=== PATIENT | female | born 1940 | race Caucasian/White ===

== ENCOUNTER 2021-07-25 17:01 | Inpatient (IN) ==
[2021-07-25] MEDS ORDERED: FUROSEMIDE 40 MG/4 ML VIAL IV STA (18:49)
[2021-07-25] MEDS ORDERED: FUROSEMIDE 40 MG/4 ML VIAL ONE (20:14)
[2021-07-25 20:38] LABS: Basophils % 0.2 % (0.0-0.8); Eosinophils # 0.1 10*3/uL (0.0-0.87); Eosinophils % 1.4 % (0.00-10.9); Hematocrit 21.9 VOL% (35.7-47.0); Hemoglobin 6.6 GM/DL (12.0-16.0); Immature Granulocytes % 0.8 %; Immature Granulocytes Absolute 0.04 #; Lymphocytes # 0.5 10*3/uL (1.4-4.0); Lymphocytes % 9.1 % (21.3-54.2); Mean Corpuscular HGB Conc 30.1 GM/DL (32-36); Mean Corpuscular Volume 102.8 FL (87-102); Mean Platelet Volume 11.2 FL (9.6-12.0); Monocytes % 5.5 % (1.7-12.7); NRBC # 0.16 10*3/uL; Platelet Count 138 T/CUMM (130-400); Red Blood Count 2.13 MC/CUMM (3.8-5.5); Red Cell Distribution Width 16.2 % (9.3-17.3); White Blood Count 5.1 T/CUMM (4-12)
[2021-07-25 20:56] LABS: Albumin 3.4 G/DL (3.4-5.0); Bilirubin,Total 1.1 MG/DL (0.20-1.00); Calcium 8.8 MG/DL (8.5-10.1); Osmolality,Calculated 297.7 MOS/KG (273-304); Total Protein 6.9 G/DL (6.4-8.2)
[2021-07-25 21:01] LABS: Bilirubin,Urine Negative (Negative); Blood, Urine Small mg/dL (Negative); Glucose,Urine (UA) Negative (Negative); Ketones,Urine Negative (Negative); Nitrite,Urine Negative (Negative); Protein,Urine Negative; RBC,Urine 6 /HPF (0-4); Squamous Epithelial Cell,Urine Occasional /HPF (0-10); Urine Appearance Clear (Clear); Urine Color Straw (Yellow); Urine Specific Gravity 1.005 (1.001-1.035); Urine Urobilinogen 0.2 EU/DL (0.2-1.0)
[2021-07-25 21:02] LABS: Bacteria,Urine Occasional /HPF (Few); Hyaline Casts,Urine 4 /LPF (0-3); Mucus,Urine Occasional /LPF (Occasional)
[2021-07-25 21:08] LABS: INR 1.3; PT Patient Result 13.8 SECS (10.5-12.0); Partial Thromboplastin Time 47.6 SECS (23.9-33.8)
[2021-07-25] MEDS ORDERED: cefTRIAXone 1,000 MG in SODIUM CHLORIDE 0.9% 100 ML IV STA (21:41)
[2021-07-25] MEDS ORDERED: cefTRIAXone 1,000 MG VIAL ONE (21:55)
[2021-07-25] MEDS ORDERED: SODIUM CHLORIDE 0.9% 100 ML IV ONE (21:56)
[2021-07-26] MEDS ORDERED: SODIUM CHLORIDE 0.9% 1,000 ML IV PRN ×2 (01:35→12:24)
[2021-07-26] MEDS ORDERED: ONDANSETRON 4 MG/2 ML VIAL IV PRN (04:06)
[2021-07-26] MEDS: carvediloL 6.25 MG TABLET PO SCH (06:31)
[2021-07-26] MEDS: PANTOPRAZOLE 40 MG TABLET PO SCH (08:52)
[2021-07-26] MEDS: ACETAMINOPHEN 325 MG TABLET PO PRN ×2 (08:52→22:16)
[2021-07-26] MEDS ORDERED: INFLUENZA VIRUS VACCINE 0.5 ML SYRINGE IM ONE (09:00)
[2021-07-26 11:16] LABS: Hematocrit 24.7 VOL% (35.7-47.0); Hemoglobin 7.4 GM/DL (12.0-16.0)
[2021-07-26] MEDS ORDERED: ACETAMINOPHEN 650 MG PO PRN (12:00)
[2021-07-26] MEDS: AMIODARONE 200 MG TABLET PO SCH (12:31)
[2021-07-26 12:37] LABS: Basophils % 0.2 % (0.0-0.8); Eosinophils # 0.1 10*3/uL (0.0-0.87); Hematocrit 26.7 VOL% (35.7-47.0); Hemoglobin 7.7 GM/DL (12.0-16.0); Immature Granulocytes % 0.7 %; Immature Granulocytes Absolute 0.04 #; Lymphocytes # 0.4 10*3/uL (1.4-4.0); Lymphocytes % 7.2 % (21.3-54.2); Mean Corpuscular HGB Conc 28.8 GM/DL (32-36); Mean Corpuscular Volume 97.4 FL (87-102); Mean Platelet Volume 10.6 FL (9.6-12.0); Monocytes % 5.8 % (1.7-12.7); NRBC # 0.21 10*3/uL; Neutrophils % 85.1 % (38.7-73.9); Platelet Count 143 T/CUMM (130-400); Red Blood Count 2.74 MC/CUMM (3.8-5.5); Red Cell Distribution Width 17.4 % (9.3-17.3); White Blood Count 5.7 T/CUMM (4-12)
[2021-07-26 12:56] LABS: Hypochromasia 1+
[2021-07-26 12:57] LABS: Acanthocytes Few; Microcytosis 1+; Ovalocytes Slight; Platelet Estimate Adequate
[2021-07-26 13:07] LABS: Albumin 3.3 G/DL (3.4-5.0); Bilirubin,Total 1.1 MG/DL (0.20-1.00); Calcium 9.2 MG/DL (8.5-10.1); Osmolality,Calculated 302.3 MOS/KG (273-304)
[2021-07-26] MEDS: cefTRIAXone 1,000 MG in SODIUM CHLORIDE 0.9% 100 ML IV SCH (14:02)
[2021-07-26] MEDS ORDERED: FUROSEMIDE 40 MG/4 ML VIAL IV ONE (14:21)
[2021-07-26] MEDS ORDERED: FUROSEMIDE 40 MG TABLET PO SCH (16:00)
[2021-07-26] MEDS ORDERED: APIXABAN 2.5 MG TABLET PO SCH (21:00)
[2021-07-27 00:40] LABS: Hematocrit 26.2 VOL% (35.7-47.0); Hemoglobin 7.9 GM/DL (12.0-16.0)
[2021-07-27] MEDS: carvediloL 6.25 MG TABLET PO SCH ×3 (02:30→21:12)
[2021-07-27] MEDS: ACETAMINOPHEN 325 MG TABLET PO PRN (05:04)
[2021-07-27 05:24] LABS: Basophils % 0.2 % (0.0-0.8); Eosinophils # 0.1 10*3/uL (0.0-0.87); Eosinophils % 1.2 % (0.00-10.9); Hematocrit 27.4 VOL% (35.7-47.0); Hemoglobin 8.5 GM/DL (12.0-16.0); Immature Granulocytes % 0.8 %; Immature Granulocytes Absolute 0.04 #; Lymphocytes # 0.5 10*3/uL (1.4-4.0); Lymphocytes % 9.4 % (21.3-54.2); Mean Corpuscular Volume 95.5 FL (87-102); Mean Platelet Volume 10.8 FL (9.6-12.0); Monocytes % 6.3 % (1.7-12.7); NRBC # 0.18 10*3/uL; Neutrophils % 82.1 % (38.7-73.9); Platelet Count 139 T/CUMM (130-400); Red Blood Count 2.87 MC/CUMM (3.8-5.5); Red Cell Distribution Width 18.2 % (9.3-17.3); White Blood Count 5.1 T/CUMM (4-12)
[2021-07-27 05:59] LABS: Bilirubin,Total 0.9 MG/DL (0.20-1.00); Calcium 9.2 MG/DL (8.5-10.1); Osmolality,Calculated 300.3 MOS/KG (273-304); Total Protein 6.7 G/DL (6.4-8.2)
[2021-07-27] MEDS: CALCIUM (CARBONATE)/VITAMIN D 600 MG-400 UNIT TABLET PO SCH (10:39)
[2021-07-27] MEDS: MULTIVITAMIN (BEROCCA) TABLET PO SCH (10:40)
[2021-07-27] MEDS: ASPIRIN EC 81 MG TABLET PO SCH (10:41)
[2021-07-27] MEDS: AMIODARONE 200 MG TABLET PO SCH (10:41)
[2021-07-27] MEDS: PANTOPRAZOLE 40 MG TABLET PO SCH (10:42)
[2021-07-27] MEDS: FUROSEMIDE 40 MG/4 ML VIAL IV SCH (10:43)
[2021-07-27] MEDS: cefTRIAXone 1,000 MG in SODIUM CHLORIDE 0.9% 100 ML IV SCH (13:04)
[2021-07-27] MEDS: SKIN HEALING OINT (AQUAPHOR) 50 GM TUBE TOP SCH ×2 (18:25→21:15)
[2021-07-27] MEDS: SIMVASTATIN 20 MG TABLET PO SCH (21:12)
[2021-07-28] MEDS: ACETAMINOPHEN 325 MG TABLET PO PRN (02:14)
[2021-07-28 07:17] LABS: Basophils % 0.2 % (0.0-0.8); Eosinophils # 0.1 10*3/uL (0.0-0.87); Eosinophils % 1.9 % (0.00-10.9); Hematocrit 26.6 VOL% (35.7-47.0); Hemoglobin 8.1 GM/DL (12.0-16.0); Immature Granulocytes % 0.6 %; Immature Granulocytes Absolute 0.03 #; Lymphocytes # 0.5 10*3/uL (1.4-4.0); Lymphocytes % 9.5 % (21.3-54.2); Mean Corpuscular HGB Conc 30.5 GM/DL (32-36); Mean Platelet Volume 10.8 FL (9.6-12.0); Monocytes % 5.4 % (1.7-12.7); Neutrophils % 82.4 % (38.7-73.9); Platelet Count 141 T/CUMM (130-400); Red Blood Count 2.83 MC/CUMM (3.8-5.5); Red Cell Distribution Width 17.6 % (9.3-17.3); White Blood Count 5.4 T/CUMM (4-12)
[2021-07-28 07:33] LABS: Calcium 9.2 MG/DL (8.5-10.1); Osmolality,Calculated 300.1 MOS/KG (273-304); Potassium 3.8 MMOL/L (3.5-5.1)
[2021-07-28] MEDS: DAPAGLIFLOZIN 10 MG TABLET PO SCH (09:31)
[2021-07-28] MEDS: CALCIUM (CARBONATE)/VITAMIN D 600 MG-400 UNIT TABLET PO SCH (09:32)
[2021-07-28] MEDS: PANTOPRAZOLE 40 MG TABLET PO SCH (09:32)
[2021-07-28] MEDS: AMIODARONE 200 MG TABLET PO SCH (09:32)
[2021-07-28] MEDS: MULTIVITAMIN (BEROCCA) TABLET PO SCH (09:32)
[2021-07-28] MEDS: ASPIRIN EC 81 MG TABLET PO SCH (09:32)
[2021-07-28] MEDS: FUROSEMIDE 40 MG/4 ML VIAL IV SCH (09:33)
[2021-07-28] MEDS: SKIN HEALING OINT (AQUAPHOR) 50 GM TUBE TOP SCH ×2 (09:35→21:05)
[2021-07-28] MEDS: carvediloL 6.25 MG TABLET PO SCH ×2 (10:08→21:03)
[2021-07-28] MEDS: ERTAPENEM 500 MG in SODIUM CHLORIDE 0.9% 100 ML IV SCH (11:46)
[2021-07-28] MEDS: SIMVASTATIN 20 MG TABLET PO SCH (21:03)
[2021-07-29 05:40] LABS: Basophils % 0.4 % (0.0-0.8); Eosinophils # 0.1 10*3/uL (0.0-0.87); Eosinophils % 2.8 % (0.00-10.9); Hematocrit 27.2 VOL% (35.7-47.0); Hemoglobin 8.3 GM/DL (12.0-16.0); Immature Granulocytes % 0.4 %; Immature Granulocytes Absolute 0.02 #; Lymphocytes # 0.4 10*3/uL (1.4-4.0); Lymphocytes % 7.9 % (21.3-54.2); Mean Corpuscular HGB Conc 30.5 GM/DL (32-36); Mean Corpuscular Volume 95.4 FL (87-102); Monocytes % 5.4 % (1.7-12.7); NRBC # 0.11 10*3/uL; Neutrophils % 83.1 % (38.7-73.9); Platelet Count 140 T/CUMM (130-400); Red Blood Count 2.85 MC/CUMM (3.8-5.5); Red Cell Distribution Width 17.2 % (9.3-17.3)
[2021-07-29 06:05] LABS: Calcium 9.3 MG/DL (8.5-10.1); Osmolality,Calculated 302.8 MOS/KG (273-304); Potassium 3.6 MMOL/L (3.5-5.1)
[2021-07-29] MEDS: ASPIRIN EC 81 MG TABLET PO SCH (09:24)
[2021-07-29] MEDS: CALCIUM (CARBONATE)/VITAMIN D 600 MG-400 UNIT TABLET PO SCH (09:25)
[2021-07-29] MEDS: PANTOPRAZOLE 40 MG TABLET PO SCH (09:25)
[2021-07-29] MEDS: AMIODARONE 200 MG TABLET PO SCH (09:25)
[2021-07-29] MEDS: carvediloL 6.25 MG TABLET PO SCH (09:25)
[2021-07-29] MEDS: DAPAGLIFLOZIN 10 MG TABLET PO SCH (09:26)
[2021-07-29] MEDS: MULTIVITAMIN (BEROCCA) TABLET PO SCH (09:26)
[2021-07-29] MEDS: SKIN HEALING OINT (AQUAPHOR) 50 GM TUBE TOP SCH (09:37)
[2021-07-29] MEDS: FUROSEMIDE 40 MG/4 ML VIAL IV SCH (09:55)
[2021-07-29] MEDS: ERTAPENEM 500 MG in SODIUM CHLORIDE 0.9% 100 ML IV SCH (10:20)
[2021-07-29 11:53] VITALS: BP 133/58
== END 2021-07-29 14:49 | disposition swing bed (61) | DRG 291 ==
LOC: EDUNIT# → EDBD → N.ED 17:01 → N.EDINP 17:01 → N.TELEN 07-26 00:37
PROVIDERS: ADMIT Internal Medicine; ATTEND Internal Medicine